=== PATIENT | male | born 1985 | race Caucasian/White ===

== ENCOUNTER 2024-01-31 22:29 | Emergency (ER) | payer MEDICARE, MEDICAID ==
[~2024-01-31] VITALS: Ht 188 cm; Wt 124.7 kg
[2024-01-31 22:34] VITALS: BP 136/95
[2024-01-31 22:45] VITALS: BP 132/76
[2024-01-31 23:00] VITALS: BP 151/90
[2024-01-31] MEDS ORDERED: SODIUM CHLORIDE 0.9% 1,000 ML IV ONE (23:05)
[2024-01-31] MEDS ORDERED: ASPIRIN 81 MG/TAB PO ONE (23:05)
[2024-01-31 23:15] VITALS: BP 126/78
[2024-01-31 23:20] LABS: BASO% 0.4 % (0-3); EOS% 2.9 % (0-8); HEMATOCRIT 42.3 % (39.0-50.0); HEMOGLOBIN 14.6 g/dl (14.0-18.0); IMMATURE GRANULOCYTES 0.2 % (0.0-5.0); LYMPH% 19.8 % (15-41); MEAN CELL VOLUME 88.5 fL CALC (80.0-100.0); MEAN CORPUSCULAR HGB 30.5 pG CALC (26.0-32.0); MEAN CORPUSCULAR HGB CONC 34.5 g/dL CAL (32.0-36.0); MONO% 5.5 % (2-13); NEUT# 10.08 thou/uL (1.82-7.42); NEUT% 71.2 % (42-76); RED BLOOD COUNT 4.78 mill/uL (4.70-6.10); RED CELL DISTRI WIDTH 11.8 % (11.5-15.5)
[2024-01-31 23:21] LABS: URINE BILIRUBIN - DIPSTICK Negative (NEGATIVE); URINE BLOOD DIPSTICK Negative (NEGATIVE); URINE GLUCOSE - DIPSTICK >=1000 mg/dL (NEGATIVE); URINE KETONE Trace mg/dL (NEGATIVE); URINE LEUK ESTERASE Negative (NEGATIVE); URINE NITRITE - DIPSTICK Negative (Negative); URINE PH 5.5 (4.5-8.0); URINE PROTEIN - DIPSTICK Trace mg/dL (NEG-TRACE); URINE SPECIFIC GRAVITY 1.015; URINE UROBILINOGEN - DIPSTICK 0.2 E.U./dL (0.2)
[2024-01-31 23:22] LABS: URINE COLOR Yellow
[2024-01-31 23:30] VITALS: BP 134/82
[2024-01-31 23:31] LABS: ALBUMIN 3.9 g/dL (3.2-5.0); BILIRUBIN, TOTAL 0.4 mg/dL (0.2-1.3); CREATININE 0.6 mg/dL (0.7-1.3); MAGNESIUM 1.8 mg/dL (1.6-2.3); POTASSIUM 3.7 mmol/l (3.5-5.1); TOTAL PROTEIN 6.8 g/dL (6.3-8.2)
[2024-01-31 23:38] LABS: ACT PARTIAL THROMBO TIME 24.7 SECONDS (20.0-32.5)
[2024-01-31 23:43] LABS: PROTHROMBIN TIME 9.6 SECONDS (9.0-12.5)
[2024-01-31 23:45] VITALS: BP 123/73
[2024-01-31 23:49] LABS: D-DIMER 0.59 mg/L (0.19-0.60)
[2024-02-01] VITALS: BP 121/78
[2024-02-01 00:02] LABS: TSH, 3RD GENERATION 1.74 uIU/mL (0.47 - 4.68)
[2024-02-01] MEDS ORDERED: INSULIN REGULAR (HUMAN) 100 UNIT/ML INJ IV ONE (00:05)
[2024-02-01] MEDS ORDERED: INSULIN REGULAR (HUMAN) 100 UNIT/ML INJ SC ONE (00:05)
[2024-02-01] MEDS ORDERED: SODIUM CHLORIDE 0.9% 1,000 ML IV ONE (00:05)
[2024-02-01 00:15] VITALS: BP 130/87
[2024-02-01 00:30] VITALS: BP 122/85
[2024-02-01 00:45] VITALS: BP 124/84
[2024-02-01 01:00] VITALS: BP 138/96
[2024-02-01] MEDS ORDERED: METFORMIN HCL500 M1 PO (01:02)
[2024-02-01 01:07] VITALS: BP 138/96
[2024-02-01] MEDS ORDERED: GLIMEPIRIDE2 MG PO (01:13)
== END 2024-02-01 01:15 | disposition home or self-care (01) ==
LOC: ED 22:29
PROVIDERS: Family Medicine
DX: R55 Syncope and collapse (principal); R07.89 Other chest pain; E11.9 Type 2 diabetes mellitus without complications; H54.7 Unspecified visual loss; Z72.0 Tobacco use

== ENCOUNTER 2024-02-03 11:09 | Emergency (ER) | payer MEDICARE, MEDICAID ==
[~2024-02-03 11:09] MED LIST: GLIMEPIRIDE2 MG PO; METFORMIN HCL500 M1 PO
[2024-02-03 11:15] VITALS: BP 0/0
[2024-02-03] MEDS ORDERED: SODIUM BICARBONATE 8.4% 50 ML/SYR IV ONE (16:07)
[2024-02-03] MEDS ORDERED: SODIUM CHLORIDE 0.9% 1,000 ML BAG IV ONE (16:07)
[2024-02-03] MEDS ORDERED: EPINEPHrine HCL 1 MG/ML 10 ML IV ONE (16:07)
== END 2024-02-03 13:50 | disposition expired ==
LOC: ED 11:09
PROC: 5A12012 Performance of Cardiac Output, Single, Manual (ICD-10-PCS; principal; 2024-02-03)
DX: I46.9 Cardiac arrest, cause unspecified (principal); E11.9 Type 2 diabetes mellitus without complications; H54.3 Unqualified visual loss, both eyes; F17.200 Nicotine dependence, unspecified, uncomplicated; Z79.84 Long term (current) use of oral hypoglycemic drugs